=== PATIENT | female | born 1970 ===

== ENCOUNTER 2023-12-20 08:50 | Day surgery (SDC) | payer OTHER ==
[~2023-12-20 08:50] MED LIST: ACTONEL150 MG; AMLODIPINE-OLM1 EACH; AVAPRO300 MG; METOPROLOL SUC100 MG; SYNTHROID100 MCG
[2023-12-20] MEDS ORDERED: POVIDONE-IODINE 118 ML BOTT TOP ONE (14:45)
[2023-12-20] MEDS ORDERED: IBU600 MG PO (15:14)
[2023-12-20] MEDS ORDERED: MORPHINE SULFATE 4 MG/ML VIAL IV ONE (15:40)
== END 2023-12-20 17:40 | disposition home or self-care (01) ==
LOC: CIR.AMB 08:50
PROVIDERS: ATTEND Obstetrics & Gynecology Gynecology
DX: N84.0 Polyp of corpus uteri (principal); I10 Essential (primary) hypertension; E03.9 Hypothyroidism, unspecified